=== PATIENT | male | born 1995 | race Caucasian/White ===

== ENCOUNTER → 2019-08-16 09:18 | Outpatient (CLI) | payer OTHER | END | disposition home or self-care (01) | LOC: LAB 09:18 | DX: Z20.828 Contact with and (suspected) exposure to other viral communicable diseases (principal); J11.1 Influenza due to unidentified influenza virus with other respiratory manifestations; R07.0 Pain in throat; R53.81 Other malaise; R05 Cough; R50.9 Fever, unspecified ==